=== PATIENT | female | born 1970 | race American Indian/Alaskan Native ===

== ENCOUNTER 2018-06-30 08:06 | Emergency (ER) | payer OTHER, SELFPAY ==
--- NOTE | 2018-06-30 08:57 | Emergency Department Report ---
ED General Adult HPI - General Chief complaint: Abdominal Pain Stated complaint: RIGHT SIDE PAIN Time Seen by Provider: 06/30/18 08:40 Source: patient Mode of arrival: Ambulatory Limitations: No Limitations - History of Present Illness Initial comments: The patient presents to emergency department with a chief complaint of right upper quadrant abdominal pain has been present for a couple months. Patient states she has a history of hepatitis B and is concerned about her liver. Patient states she last had a blood workup done in March this year at [facility]. Patient denies anything making the pain better or worse but does endorse radiation of pain into her back. Patient has chest pain, shortness breath, or headache. -: Gradual Location: abdomen Radiation: back Severity scale (0 -10): 4 Quality: dull Consistency: constant Improves with: none Worsens with: none Associated Symptoms: denies other symptoms Treatments Prior to Arrival: none - Related Data Previous Rx's Medication Instructions Recorded Last Taken Type Butalbit/Acetamin/Caff/Codeine 1 cap PO Q6HR PRN #20 cap 07/22/15 Unknown Rx [Fioricet/Codeine 28-697-02-30] Fluticasone [Flonase] 2 spray NS QDAY #1 bottle 07/22/15 Unknown Rx Ibuprofen [Motrin] 600 mg PO Q8H PRN #50 tablet 07/22/15 Unknown Rx Loratadine [Claritin] 10 mg PO DAILY #30 tablet 07/22/15 Unknown Rx Prednisone [predniSONE 10 mg 10 mg PO .TAPER #1 tab.ds.pk 07/22/15 Unknown Rx (6-Day Pack, 21 Tabs)] Sulfamethoxazole/Trimethoprim 1 each PO BID #20 tablet 07/22/15 Unknown Rx [Bactrim DS TAB] Amoxicillin [Amoxicillin TAB] 875 mg PO BID #20 tablet 12/14/15 Unknown Rx predniSONE [Deltasone] 40 mg PO QDAY #10 tab 12/14/15 Unknown Rx traMADol [Ultram] 50 mg PO Q6HR PRN #20 tablet 06/30/18 Unknown Rx Allergies Allergy/AdvReac Type Severity Reaction Status Date / Time No Known Allergies Allergy Unverified 07/22/15 02:51 ED Review of Systems ROS: Stated complaint: RIGHT SIDE PAIN Other details as noted in HPI Comment: All other systems reviewed and negative Constitutional: denies: chills, fever Eyes: denies: eye pain, eye discharge, vision change ENT: denies: ear pain, throat pain Respiratory: denies: cough, shortness of breath, wheezing Cardiovascular: denies: chest pain, palpitations Endocrine: no symptoms reported Gastrointestinal: abdominal pain. denies: nausea, diarrhea Genitourinary: denies: urgency, dysuria, discharge Musculoskeletal: denies: back pain, joint swelling, arthralgia Skin: denies: rash, lesions Neurological: denies: headache, weakness, paresthesias Psychiatric: denies: anxiety, depression Hematological/Lymphatic: denies: easy bleeding, easy bruising ED Past Medical Hx - Past Medical History Previous Medical History?: Yes Additional medical history: Hepatitis B - Surgical History Past Surgical History?: Yes Additional Surgical History: X's 2 - Social History Smoking Status: Never Smoker Substance Use Type: None - Medications Home Medications: Home Medications Medication Instructions Recorded Confirmed Last Taken Type Butalbit/Acetamin/Caff/Codeine 1 cap PO Q6HR PRN #20 cap 07/22/15 Unknown Rx [Fioricet/Codeine [id number]] Fluticasone [Flonase] 2 spray NS QDAY #1 bottle 07/22/15 Unknown Rx Ibuprofen [Motrin] 600 mg PO Q8H PRN #50 tablet 07/22/15 Unknown Rx Loratadine [Claritin] 10 mg PO DAILY #30 tablet 07/22/15 Unknown Rx Prednisone [predniSONE 10 mg 10 mg PO .TAPER #1 tab.ds.pk 07/22/15 Unknown Rx (6-Day Pack, 21 Tabs)] Sulfamethoxazole/Trimethoprim 1 each PO BID #20 tablet 07/22/15 Unknown Rx [Bactrim DS TAB] Amoxicillin [Amoxicillin TAB] 875 mg PO BID #20 tablet 12/14/15 Unknown Rx predniSONE [Deltasone] 40 mg PO QDAY #10 tab 12/14/15 Unknown Rx traMADol [Ultram] 50 mg PO Q6HR PRN #20 tablet 06/30/18 Unknown Rx ED Physical Exam - General Limitations: No Limitations General appearance: alert, in no apparent distress - Head Head exam: Present: atraumatic, normocephalic - Eye Eye exam: Present: normal appearance, PERRL, EOMI - ENT ENT exam: Present: mucous membranes moist - Neck Neck exam: Present: normal inspection - Respiratory Respiratory exam: Present: normal lung sounds bilaterally. Absent: respiratory distress, wheezes, rales - Cardiovascular Cardiovascular Exam: Present: regular rate, normal rhythm. Absent: systolic mu rmur, diastolic murmur, rubs, gallop - GI/Abdominal GI/Abdominal exam: Present: soft, tenderness (tenderness to palpation or right upper quadrant), normal bowel sounds. Absent: distended - Extremities Exam Extremities exam: Present: normal inspection - Back Exam Back exam: Present: normal inspection - Neurological Exam Neurological exam: Present: alert, oriented X3, CN II-XII intact. Absent: motor sensory deficit - Psychiatric Psychiatric exam: Present: normal affect, normal mood - Skin Skin exam: Present: warm, dry, intact, normal color. Absent: rash ED Course Vital Signs 06/30/18 08:15 Temperature 97.9 F Pulse Rate 100 H Respiratory 18 Rate Blood Pressure 147/77 O2 Sat by Pulse 100 Oximetry ED Medical Decision Making - Lab Data Result diagrams: 06/30/18 08:57 06/30/18 08:57 Lab Results 06/30/18 06/30/18 06/30/18 Range/Units 08:57 08:57 09:16 WBC 6.9 (4.5-11.0) K/mm3 RBC 3.77 (3.65-5.03) M/mm3 Hgb 9.9 L (10.1-14.3) gm/dl Hct 30.3 (30.3-42.9) % MCV 80 (79-97) fl MCH 26 L (28-32) pg MCHC 33 (30-34) % RDW 16.9 H (13.2-15.2) % Plt Count 447 H (140-440) K/mm3 Lymph % (Auto) 38.7 H (13.4-35.0) % [place] % (Auto) 9.3 H (0.0-7.3) % Eos % (Auto) 3.7 (0.0-4.3) % Baso % (Auto) 0.8 (0.0-1.8) % Lymph # 2.7 (1.2-5.4) K/mm3 [place] # 0.6 (0.0-0.8) K/mm3 Eos # 0.3 (0.0-0.4) K/mm3 Baso # 0.1 (0.0-0.1) K/mm3 Seg Neutrophils % 47.5 (40.0-70.0) % Seg Neutrophils # 3.3 (1.8-7.7) K/mm3 Sodium 138 (137-145) mmol/L Potassium 3.1 L (3.6-5.0) mmol/L Chloride 101.2 (98-107) mmol/L Carbon Dioxide 25 (22-30) mmol/L Anion Gap 15 mmol/L BUN 6 L (7-17) mg/dL Creatinine 0.4 L (0.7-1.2) mg/dL Estimated GFR > 60 ml/min BUN/Creatinine Ratio 15 % Glucose 104 H (65-100) mg/dL Calcium 8.9 (8.4-10.2) mg/dL Total Bilirubin 0.30 (0.1-1.2) mg/dL AST 17 (5-40) units/L ALT 13 (7-56) units/L Alkaline Phosphatase 76 (35-129) units/L Total Protein 7.3 (6.3-8.2) g/dL Albumin 3.9 (3.9-5) g/dL Albumin/Globulin Ratio 1.1 % Lipase 14 (13-60) units/L Urine Color Straw (Yellow) Urine Turbidity Clear (Clear) Urine pH 7.0 (5.0-7.0) Ur Specific [place] 1.003 (1.003-1.030) Urine Protein <15 mg/dl (Negative) mg/dL Urine Glucose (UA) Neg (Negative) mg/dL Urine Ketones Neg (Negative) mg/dL Urine Blood Sm (Negative) Urine Nitrite Neg (Negative) Urine Bilirubin Neg (Negative) Urine Urobilinogen < 2.0 (<2.0) mg/dL Ur Leukocyte Esterase Neg (Negative) Urine WBC (Auto) 1.0 (0.0-6.0) /HPF Urine RBC (Auto) 2.0 (0.0-6.0) /HPF U Epithel Cells (Auto) 1.0 (0-13.0) /HPF Urine HCG, Qual Negative (Negative) - Radiology Data Radiology results: report reviewed - Medical Decision Making Discussed results with the patient Critical care attestation.: If time is entered above; I have spent that time in minutes in the direct care of this critically ill patient, excluding procedure time. ED Disposition Clinical Impression: Right upper quadrant abdominal pain Disposition: TO HOME OR SELFCARE Is pt being admited?: No Does the pt Need Aspirin: No Condition: Stable Instructions: Abdominal Pain (ED) Additional Instructions: Return if worse Prescriptions: traMADol [Ultram] 50 mg PO Q6HR PRN #20 tablet PRN Reason: Pain Referrals: PRIMARY CARE, [Primary Care Provider] - 3-5 Days [facility] [Provider Group] - 3-5 Days [facility] [Provider Group] - 3-5 Days Time of Disposition: 10:03
[2018-06-30 09:09] LABS: Basophils # (Auto) 0.1 K/mm3 (0.0-0.1); Basophils % (Auto) 0.8 % (0.0-1.8); Eosinophils # (Auto) 0.3 K/mm3 (0.0-0.4); Eosinophils % (Auto) 3.7 % (0.0-4.3); Hematocrit 30.3 % (30.3-42.9); Hemoglobin 9.9 gm/dl (10.1-14.3); Lymphocytes # (Auto) 2.7 K/mm3 (1.2-5.4); Lymphocytes % (Auto) 38.7 % (13.4-35.0); Mean Corpuscular HGB Conc 33 % (30-34); Mean Corpuscular Volume 80 fl (79-97); Monocytes # (Auto) 0.6 K/mm3 (0.0-0.8); Monocytes % (Auto) 9.3 % (0.0-7.3); Platelet Count 447 K/mm3 (140-440); Red Blood Count 3.77 M/mm3 (3.65-5.03); Red Cell Distribution Width 16.9 % (13.2-15.2)
[2018-06-30 09:25] LABS: Alanine Aminotransferase 13 units/L (7-56); Albumin 3.9 g/dL (3.9-5); BUN/Creatinine Ratio 15; Blood Urea Nitrogen 6 mg/dL (7-17); Calcium 8.9 mg/dL (8.4-10.2); Hemolysis Index 2
[2018-06-30 09:31] LABS: Bilirubin,Urine NEG (Negative); Blood,Urine SM (Negative); Color,Urine Straw (Yellow); Protein,Urine <15 mg/dL mg/dL (Negative); Urobilinogen,Urine < 2.0 mg/dL (<2.0)
[2018-06-30 09:32] LABS: HCG Qualitative,Urine Negative (Negative)
--- NOTE | 2018-06-30 09:43 | Ultrasound Report ---
ULTRASOUND ABDOMEN LIMITED: TECHNIQUE: Transabdominal ultrasound with color Doppler interrogation. HISTORY: right upper quadrant abdominal pain. COMPARISON: none. FINDINGS: LIVER: Normal. BILIARY SYSTEM: Normal. PANCREAS: Normal. RIGHT KIDNEY: Normal. PROXIMAL AORTA: Normal. ASCITES: None. IMPRESSION: Unremarkable exam.
[2018-06-30 10:13] VITALS: BP 140/80
== END 2018-06-30 10:10 | disposition home or self-care (01) ==
LOC: ED 08:06
DX: R10.11 Right upper quadrant pain (principal); Z86.19 Personal history of other infectious and parasitic diseases
CPT/HCPCS: 36415; 76705; 80053; 81001; 81025; 83690; 85025; 99284

== ENCOUNTER 2020-02-03 22:11 | Emergency (ER) | payer SELFPAY ==
[2020-02-03 23:10] VITALS: BP 151/83
--- NOTE | 2020-02-03 23:41 | XRay Report ---
CHEST 1 VIEW INDICATION / CLINICAL INFORMATION: Chest Pain. COMPARISON: 02/17/2019 FINDINGS: SUPPORT DEVICES: None. HEART / MEDIASTINUM: No significant abnormality. LUNGS / PLEURA: No significant pulmonary or pleural abnormality. No pneumothorax. ADDITIONAL FINDINGS: No significant additional findings. IMPRESSION: 1. No acute findings. No interval change. Signer Name: Sharon Mazariegos MD Signed: 02/03/2020 11:37 PM Workstation Name: [id number]
[2020-02-03 23:48] LABS: Basophils # (Auto) 0.1 K/mm3 (0.0-0.1); Basophils % (Auto) 0.7 % (0.0-1.8); Eosinophils # (Auto) 0.3 K/mm3 (0.0-0.4); Eosinophils % (Auto) 2.6 % (0.0-4.3); Hematocrit 30.6 % (30.3-42.9); Hemoglobin 9.9 gm/dl (10.1-14.3); Lymphocytes # (Auto) 3.6 K/mm3 (1.2-5.4); Lymphocytes % (Auto) 37.7 % (13.4-35.0); Mean Corpuscular HGB Conc 32 % (30-34); Mean Corpuscular Volume 80 fl (79-97); Monocytes # (Auto) 0.7 K/mm3 (0.0-0.8); Monocytes % (Auto) 7.4 % (0.0-7.3); Platelet Count 382 K/mm3 (140-440)
[2020-02-04 00:01] LABS: Blood Urea Nitrogen 12 mg/dL (7-17); Calcium 9.1 mg/dL (8.4-10.2); Hemolysis Index 4
[2020-02-04 00:02] LABS: BUN/Creatinine Ratio 30
[2020-02-04 00:08] LABS: Red Cell Distribution Width 20.1 % (13.2-15.2)
--- NOTE | 2020-02-04 00:30 | Emergency Department Report ---
ED Chest Pain HPI - General Chief Complaint: Chest Pain Stated Complaint: CHEST PAIN PUI?: No Time Seen by Provider: 02/04/20 00:16 Source: patient Mode of arrival: Ambulatory Limitations: No Limitations - History of Present Illness Initial Comments: Patient is a 49-year-old female that presents emergency room with complaints of chest pain. Patient states her chest pain started 2 days ago. Patient states that her chest pain is intermittent and is a burning sensation. Patient states her chest pain is worse after she eats. Patient states she is been having a lot of burping. Patient states that she has been having acid reflux symptoms. Patient states that her pain is a 7 out of 10. Patient states that her pain is better with rest, time and burping. Patient states that her pain is worse with food. Patient denies nausea vomiting. Patient denies diaphoresis. Patient denies anxiety. Patient denies shortness of breath. Patient denies any changes in her chest pain with exertion. Patient states the chest pain is in the center of her chest and starts down in the epigastric region. Patient denies recent travel. Patient denies recent international travel. Patient denies exposure to the novel coronavirus. Patient denies sick contacts. Patient denies fever and chills. Patient denies cough. Patient denies diarrhea. Patient denies coming in contact with anybody with symptoms of the novel coronavirus. MD Complaint: chest pain -: Sudden, days(s) Onset: after eating Severity scale (0 -10): 7 Quality: other re: denies: nausea, vomting, diaphoresis, dyspnea, sense of impending doom Other Symptoms: acid taste in mouth, burping. denies: cough, fever, syncope, rash, leg swelling, palpitations Treatments Prior to Arrival: none Aspirin use within the Past 7 Days: (0) No - Related Data On Oral Contraceptives: No Previous Rx's Medication Instructions Recorded Last Taken Type Butalbit/Acetamin/Caff/Codeine 1 cap PO Q6HR PRN #20 cap 07/22/15 Unknown Rx [Fioricet/Codeine [id number]] Fluticasone [Flonase] 2 spray NS QDAY #1 bottle 07/22/15 Unknown Rx Ibuprofen [Motrin] 600 mg PO Q8H PRN #50 tablet 07/22/15 Unknown Rx Loratadine (Nf) [Claritin] 10 mg PO DAILY #30 tablet 07/22/15 Unknown Rx Prednisone [predniSONE 10 mg 10 mg PO .TAPER #1 tab.ds.pk 07/22/15 Unknown Rx (6-Day Pack, 21 Tabs)] Sulfamethoxazole/Trimethoprim 1 each PO BID #20 tablet 07/22/15 Unknown Rx [Bactrim DS TAB] Amoxicillin [Amoxicillin TAB] 875 mg PO BID #20 tablet 12/14/15 Unknown Rx predniSONE [Deltasone] 40 mg PO QDAY #10 tab 12/14/15 Unknown Rx traMADoL [Ultram] 50 mg PO Q6HR PRN #20 tablet 06/30/18 Unknown Rx Esomeprazole Magnesium [NexIUM] 40 mg PO BID #30 capsule. 02/04/20 Unknown Rx Allergies Allergy/AdvReac Type Severity Reaction Status Date / Time No Known Allergies Allergy Unverified 07/22/15 02:51 Heart Score - HEART Score History: Slightly suspicious EKG: Normal Age: 45-65 Risk factors: No known risk factors Troponin: < normal limit HEART Score: 1 ED Review of Systems ROS: Stated complaint: CHEST PAIN Other details as noted in HPI Constitutional: denies: chills, fever Eyes: denies: eye pain, eye discharge, vision change ENT: denies: ear pain, throat pain Respiratory: denies: cough, shortness of breath, wheezing Cardiovascular: chest pain. denies: palpitations Endocrine: no symptoms reported Gastrointestinal: as per HPI. denies: abdominal pain, nausea, diarrhea Genitourinary: denies: urgency, dysuria, discharge Musculoskeletal: denies: back pain, joint swelling, arthralgia Skin: denies: rash, lesions Neurological: denies: headache, weakness, paresthesias Psychiatric: denies: anxiety, depression Hematological/Lymphatic: denies: easy bleeding, easy bruising ED Past Medical Hx - Past Medical History Previous Medical History?: Yes Additional medical history: Hepatitis B - Surgical History Past Surgical History?: Yes Additional Surgical History: X's 2 - Family History Family history: no significant - Social History Smoking Status: Never Smoker Substance Use Type: None - Medications Home Medications: Home Medications Medication Instructions Recorded Confirmed Last Taken Type Butalbit/Acetamin/Caff/Codeine 1 cap PO Q6HR PRN #20 cap 07/22/15 Unknown Rx [Fioricet/Codeine [id number]] Fluticasone [Flonase] 2 spray NS QDAY #1 bottle 07/22/15 Unknown Rx Ibuprofen [Motrin] 600 mg PO Q8H PRN #50 tablet 07/22/15 Unknown Rx Loratadine (Nf) [Claritin] 10 mg PO DAILY #30 tablet 07/22/15 Unknown Rx Prednisone [predniSONE 10 mg 10 mg PO .TAPER #1 tab.ds.pk 07/22/15 Unknown Rx (6-Day Pack, 21 Tabs)] Sulfamethoxazole/Trimethoprim 1 each PO BID #20 tablet 07/22/15 Unknown Rx [Bactrim DS TAB] Amoxicillin [Amoxicillin TAB] 875 mg PO BID #20 tablet 12/14/15 Unknown Rx predniSONE [Deltasone] 40 mg PO QDAY #10 tab 12/14/15 Unknown Rx traMADoL [Ultram] 50 mg PO Q6HR PRN #20 tablet 06/30/18 Unknown Rx Esomeprazole Magnesium [NexIUM] 40 mg PO BID #30 capsule. 02/04/20 Unknown Rx ED Physical Exam - General Limitations: No Limitations General appearance: alert, in no apparent distress - Head Head exam: Present: atraumatic, normocephalic - Eye Eye exam: Present: normal appearance - ENT ENT exam: Present: mucous membranes moist - Neck Neck exam: Present: normal inspection - Respiratory Respiratory exam: Present: normal lung sounds bilaterally. Absent: respiratory distress - Cardiovascular Cardiovascular Exam: Present: regular rate, normal rhythm. Absent: systolic murmur, diastolic murmur, rubs, gallop - GI/Abdominal GI/Abdominal exam: Present: soft, normal bowel sounds - Extremities Exam Extremities exam: Present: normal inspection - Back Exam Back exam: Present: normal inspection - Neurological Exam Neurological exam: Present: alert, oriented X3 - Psychiatric Psychiatric exam: Present: normal affect, normal mood - Skin Skin exam: Present: warm, dry, intact, normal color. Absent: rash ED Course Vital Signs 02/03/20 23:08 Temperature 98.0 F Pulse Rate 90 Respiratory 20 Rate Blood Pressure 151/83 O2 Sat by Pulse 100 Oximetry - Reevaluation(s) Reevaluation #1: Patient information faxed over local diesel automotive technician for risk stratification. I discussed all results and clinical findings with patient. I discussed plan of care with patient. Patient agrees with plan of care. Patient is stable for discharge. Patient will be discharged home. Patient given discharge instructions. Patient voiced understanding of discharge instructions. 02/04/20 00:30 RUEBN score - Ruben Score Age > 65: (0) No Aspirin use within the Past 7 Days: (0) No 3 or more CAD Risk Factors: (0) No 2 or more Angina events in past 24 hrs: (0) No Known CAD with more than 50% Stenosis: (0) No Elevated Cardiac Markers: (0) No ST Deviation Greater than 0.5mm: (0) No RUBEN Score: 0 ED Medical Decision Making - Lab Data Result diagrams: 02/03/20 23:17 02/03/20 23:17 - EKG Data -: EKG Interpreted by Me EKG shows normal: sinus rhythm, axis, intervals, QRS complexes, ST-T waves Rate: normal - Radiology Data Radiology results: report reviewed, image reviewed interpreted by me: No acute findings on chest x-ray, normal lung bob, normal size heart, no oss eous findings. - Medical Decision Making Patient is a 49-year-old female that presents emergency room with complaints of chest pain. Patient says been going on for 2 days. Patient's clinical findings are consistent with gastritis and acid reflux with esophagitis. Patient's labs are unremarkable. Patient has low risk chest pain. Patient has minimal risk factors. Patient's heart score is a 1. Patient's RUBEN score is negative. Patient's EKG shows normal sinus rhythm with no ST changes. Patient's chest x- ray is negative for acute findings. Patient's cardiac enzymes are negative. Patient's labs are unremarkable. Patient will be discharged home with instructi ons and acid reflux medication. - Differential Diagnosis gerd. cp. gastritis Critical care attestation.: If time is entered above; I have spent that time in minutes in the direct care of this critically ill patient, excluding procedure time. ED Disposition Clinical Impression: GERD with esophagitis Chest pain Qualifiers: Chest pain type: unspecified Qualified Code(s): R07.9 - Chest pain, unspecified Gastritis Qualifiers: Gastritis type: unspecified gastritis Chronicity: acute Gastritis bleeding: without bleeding Qualified Code(s): K29.00 - Acute gastritis without bleeding Disposition: TO HOME OR SELFCARE Is pt being admited?: No Does the pt Need Aspirin: No Condition: Stable Instructions: Chest Pain (ED), Diet for Ulcers and Gastritis (ED), Gastroesophageal Reflux Disease (ED), Chronic Indigestion (ED), Gastritis (ED) Additional Instructions: Patient to follow-up with primary care in 2 to 3 days. Patient to follow-up with gastroenterology in 2 to 3 days. Patient to follow-up with cardiology in 2 to 3 days. Patient's information was faxed over to our local diesel automotive technician so that the cardiology office as a referral and for risk stratification.. Patient to rest. Patient to increase water. Patient to avoid strenuous exercise or heavy lifting until cleared by diesel automotive technician. Patient to take Tylenol as needed for pain. Patient to take meds as directed. Patient to return to the ER if condition worsens, changes or new symptoms arise. Prescriptions: Esomeprazole Magnesium [NexIUM] 40 mg PO BID #30 capsule.dr Referrals: VLAD VERGARA MD [Staff Physician] - 2-3 Days JIAN STARR MD [Staff Physician] - 2-3 Days Time of Disposition: 01:00
== END 2020-02-04 00:45 | disposition home or self-care (01) ==
LOC: ED 22:11
DX: K21.0 Gastro-esophageal reflux disease with esophagitis (principal); K29.60 Other gastritis without bleeding
CPT/HCPCS: 36415; 71045; 80048; 84484; 85025; 93005

== ENCOUNTER 2021-04-24 03:04 | Emergency (ER) | payer SELFPAY ==
[2021-04-24] MEDS ORDERED: MECLIZINE 25 MG TAB PO ONE (04:03)
--- NOTE | 2021-04-24 04:07 | Emergency Department Report ---
ED Dizziness HPI - General Stated Complaint: DIZZYNESS,LIGHT HEADED Time Seen by Provider: 04/24/21 03:56 Source: patient - History of Present Illness Initial Comments: Patient is 50 years old female with history of hepatitis B. Patient brought to the emergency room via EMS from home for evaluation of sudden onset of dizziness. Patient stated that she feel room spinning. Patient stated that having difficulty walking straight. Patient stated that she did not have any visual disturbances. No focal weakness numbness or tingling sensation. Patient stated that she did not have any similar symptoms like this before. She denied chest pain shortness of breath, abdominal pain, nausea or vomiting. MD Complaint: dizziness, lightheadedness -: Sudden Timing: sudden onset Description: sense of movement, "room spinning", off-balance History of Same: No Severity: moderate Improves With: remaining still Worsens With: position Associated Symptoms: denies other symptoms - Related Data Previous Rx's Medication Instructions Recorded Last Taken Type Butalbit/Acetamin/Caff/Codeine 1 cap PO Q6HR PRN #20 cap 07/22/15 Unknown Rx [Fioricet/Codeine 46-025-31-30] Fluticasone [Flonase] 2 spray NS QDAY #1 bottle 07/22/15 Unknown Rx Ibuprofen [Motrin] 600 mg PO Q8H PRN #50 tablet 07/22/15 Unknown Rx Loratadine (Nf) [Claritin] 10 mg PO DAILY #30 tablet 07/22/15 Unknown Rx Prednisone [predniSONE 10 mg 10 mg PO .TAPER #1 tab.ds.pk 07/22/15 Unknown Rx (6-Day Pack, 21 Tabs)] Sulfamethoxazole/Trimethoprim 1 each PO BID #20 tablet 07/22/15 Unknown Rx [Bactrim DS TAB] Amoxicillin [Amoxicillin TAB] 875 mg PO BID #20 tablet 12/14/15 Unknown Rx predniSONE [Deltasone] 40 mg PO QDAY #10 tab 12/14/15 Unknown Rx traMADoL [Ultram] 50 mg PO Q6HR PRN #20 tablet 06/30/18 Unknown Rx Esomeprazole Magnesium [NexIUM] 40 mg PO BID #30 capsule. 02/04/20 Unknown Rx Allergies Allergy/AdvReac Type Severity Reaction Status Date / Time No Known Allergies Allergy Unverified 07/22/15 02:51 ED Review of Systems ROS: Stated complaint: DIZZYNESS,LIGHT HEADED Other details as noted in HPI Comment: All other systems reviewed and negative Constitutional: denies: chills, fever Respiratory: denies: cough, shortness of breath, SOB with exertion, SOB at rest Cardiovascular: denies: chest pain, palpitations Gastrointestinal: denies: abdominal pain, nausea, vomiting, diarrhea Neurological: vertigo. denies: headache, weakness, numbness, paresthesias ED Past Medical Hx - Past Medical History Additional medical history: Hepatitis B - Surgical History Additional Surgical History: X's 2 - Social History Smoking Status: Never Smoker Substance Use Type: None - Medications Home Medications: Home Medications Medication Instructions Recorded Confirmed Last Taken Type Butalbit/Acetamin/Caff/Codeine 1 cap PO Q6HR PRN #20 cap 07/22/15 Unknown Rx [Fioricet/Codeine 74-029-51-30] Fluticasone [Flonase] 2 spray NS QDAY #1 bottle 07/22/15 Unknown Rx Ibuprofen [Motrin] 600 mg PO Q8H PRN #50 tablet 07/22/15 Unknown Rx Loratadine (Nf) [Claritin] 10 mg PO DAILY #30 tablet 07/22/15 Unknown Rx Prednisone [predniSONE 10 mg 10 mg PO .TAPER #1 tab.ds.pk 07/22/15 Unknown Rx (6-Day Pack, 21 Tabs)] Sulfamethoxazole/Trimethoprim 1 each PO BID #20 tablet 07/22/15 Unknown Rx [Bactrim DS TAB] Amoxicillin [Amoxicillin TAB] 875 mg PO BID #20 tablet 12/14/15 Unknown Rx predniSONE [Deltasone] 40 mg PO QDAY #10 tab 12/14/15 Unknown Rx traMADoL [Ultram] 50 mg PO Q6HR PRN #20 tablet 06/30/18 Unknown Rx Esomeprazole Magnesium [NexIUM] 40 mg PO BID #30 capsule.dr 02/04/20 Unknown Rx ED Physical Exam - General General appearance: alert, in no apparent distress - Head Head exam: Present: atraumatic, normocephalic, normal inspection - Eye Eye exam: Present: normal appearance, PERRL - ENT ENT exam: Present: normal exam, normal orophraynx, mucous membranes moist - Neck Neck exam: Present: normal inspection, full ROM. Absent: tenderness, meningismus - Respiratory Respiratory exam: Present: normal lung sounds bilaterally - Cardiovascular Cardiovascular Exam: Present: regular rate, normal rhythm, normal heart sounds - GI/Abdominal GI/Abdominal exam: Present: soft, normal bowel sounds. Absent: distended, tenderness, guarding, rebound, rigid, organomegaly, mass, bruit, pulsatile mass, hernia - Extremities Exam Extremities exam: Present: normal inspection, full ROM, normal capillary refill. Absent: tenderness - Back Exam Back exam: Present: normal inspection, full ROM. Absent: CVA tenderness (R), CVA tenderness (L) - Neurological Exam Neurological exam: Present: alert, oriented X3, CN II-XII intact, normal gait, reflexes normal. Absent: motor sensory deficit - Psychiatric Psychiatric exam: Present: normal mood - Skin Skin exam: Present: warm, intact, normal color ED Course Vital Signs 04/24/21 03:45 Temperature 98.1 F Pulse Rate 111 H Respiratory 20 Rate Blood Pressure 178/98 [Left] O2 Sat by Pulse 100 Oximetry ED Medical Decision Making - Lab Data Result diagrams: 04/24/21 04:19 04/24/21 04:19 - EKG Data -: EKG Interpreted by Fl EKG shows normal: sinus rhythm Rate: normal - EKG Data Interpretation: no acute changes - Radiology Data Radiology results: report reviewed - Medical Decision Making Patient is 50 years old female with history of hepatitis B. Patient brought to the emergency room via EMS from home for evaluation of sudden onset of dizziness. Patient stated that she feel room spinning. Patient stated that having difficulty walking straight. Patient stated that she did not have any visual disturbances. No focal weakness numbness or tingling sensation. Patient stated that she did not have any similar symptoms like this before. She denied chest pain shortness of breath, abdominal pain, nausea or vomiting. Patient remained stable in the ER with stable vital signs slight elevated blood pressure. Patient received meclizine 25 mg p.o. with significant improvement. CT brain is negative for acute finding. Labs reviewed and is unremarkable. Patient started on blood pressure medication and given prescription for meclizine and advised to follow-up with her primary care physician in the next 2 to 3 days and to return to the ER if she develop any new symptoms. Critical care attestation.: If time is entered above; I have spent that time in minutes in the direct care of this critically ill patient, excluding procedure time. ED Disposition Clinical Impression: Dizziness, Positional vertigo Disposition: 01 HOME / SELF CARE / HOMELESS Is pt being admited?: No Condition: Stable Instructions: Dizziness, [id number], Benign Positional Vertigo Referrals: [facility] [Provider Group] - 3-5 Days
[2021-04-24 04:08] VITALS: BP 178/98
--- NOTE | 2021-04-24 04:44 | Cat Scan Report ---
CT HEAD WITHOUT CONTRAST INDICATION: Dizziness. TECHNIQUE: All CT scans at this location are performed using CT dose reduction for ALARA by means of automated e xposure control. COMPARISON: None available. FINDINGS: HEMORRHAGE: None. EXTRA-AXIAL SPACES: Normal in size and morphology for the patient's age. VENTRICULAR SYSTEM: Normal in size and morphology for the patient's age. BRAIN PARENCHYMA: No acute findings. MIDLINE SHIFT OR HERNIATION: None. ORBITS: Normal as visualized. SOFT TISSUES OF HEAD: Normal. CALVARIUM: Normal. VISUALIZED PARANASAL SINUSES AND MASTOID AIR CELLS: Clear. ADDITIONAL FINDINGS: None. IMPRESSION: 1. No acute intracranial abnormality. Signer Name: Moe Fernandez MD Signed: 04/24/2021 4:40 AM Workstation Name: [id number]
[2021-04-24 04:45] LABS: Basophils % (Auto) 0.4 % (0.0-1.8); Eosinophils # (Auto) 0.1 K/mm3 (0.0-0.4); Eosinophils % (Auto) 0.9 % (0.0-4.3); Hematocrit 33.7 % (30.3-42.9); Lymphocytes # (Auto) 1.2 K/mm3 (1.2-5.4); Mean Corpuscular HGB Conc 33 % (30-34); Mean Corpuscular Volume 86 fl (79-97); Monocytes # (Auto) 0.5 K/mm3 (0.0-0.8); Platelet Count 380 K/mm3 (140-440); Red Blood Count 3.93 M/mm3 (3.65-5.03); Red Cell Distribution Width 14.3 % (13.2-15.2)
[2021-04-24 04:59] LABS: Blood Urea Nitrogen 8 mg/dL (7-17); Calcium 8.9 mg/dL (8.4-10.2); Hemolysis Index 2
[2021-04-24 05:03] LABS: BUN/Creatinine Ratio 20
--- NOTE | 2021-04-24 08:43 | Electrocardiograph Report ---
[facility] Test Date: 2021-04-24 Test Time: 05:35:32 Pat Name: BRYAN GAN Department: Room: Gender: F [employer]: : 1970 Requested By: HANS CHRISTIAN Order Number: [id number] Reading MD: Manuel Harrington Measurements Intervals [place] Rate: 103 P: 51 W[place]: 161 QRS: 35 QRSD: 89 T: 21 QT: 359 QTc: 470 Interpretive Statements Sinus tachycardia Consider left ventricular hypertrophy No previous ECG available for comparison Electronically Signed On 04-24-2021 8:42:59 EDT by Manuel Harrington
== END 2021-04-24 06:30 | disposition home or self-care (01) ==
LOC: ED 03:04
DX: R42 Dizziness and giddiness (principal); H81.10 Benign paroxysmal vertigo, unspecified ear
CPT/HCPCS: 36415; 70450; 80048; 84484; 85025; 93005; 99284